=== PATIENT | female | born 1985 | race Caucasian/White ===

== ENCOUNTER 2016-10-01 16:13 | Inpatient (IN) | payer MEDICAID ==
--- NOTE | 2016-10-01 16:43 | EDPHY ---
H & P Smoking Status: Former smoker Time Seen by Provider: 10/01/16 16:39 HPI/ROS: Chief complaint. Agitated, schizoaffective disorder HPI. 31-year-old female with history of bipolar and schizoaffective disorder with previous mental health hospitalizations is brought to the emergency department by a co-worker. The co-worker says the patient has been acting quite erratically at work the last 2-3 days. She has walked away from work today. 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 She tried to quit work when she came in this morning. The patient tells me I like to smoke marijuana. She says she has not been taking her regular medications. Denies illness or injury. Denies suicide ideation or illness. ROS Constitutional. Erratic behavior Eyes. no problems with vision ENT. no sore throat, no nasal drainage Cardiovascular. no chest pain Respiratory. no shortness of breath, no cough Abdominal. no abdominal pain, no nausea/vomiting, no diarrhea . no problems urinating MS. no calf pain/swelling, no neck/back pain, no joint pain Skin. no rash Lymph. no swollen glands Neuro. no headache, no dizziness, no difficulty walking or with speech (Chirag Willard) Past Medical/Surgical History: Bipolar, schizoaffective (Chirag Willard) Social History: Single, nonsmoker, no alcohol (Chirag Willard) Physical Exam: General Appearance: Alert well-developed female moderate distress. Answers questions vaguely can after quite long a hesitation is Eyes: Pupils equal and round no pallor or injection. ENT, Mouth: Mucous membranes are moist. Respiratory: There are no retractions, lungs are clear to auscultation. Cardiovascular: Regular rate and rhythm. Gastrointestinal: Abdomen is soft and nontender, no masses, bowel sounds normal. Neurological: Awake and alert, sensory and motor exams grossly normal. Skin: Warm and dry, no rashes. Musculoskeletal: Neck is supple nontender. Extremities symmetrical, full range of motion. Psychiatric: Patient is oriented X 3, there is no agitation. (Chirag Willard) Constitutional: Initial Vital Signs Temperature (C) 37 C 10/01/16 16:31 Heart Rate 104 H 10/01/16 16:31 Respiratory Rate 18 10/01/16 16:31 Blood Pressure 114/81 H 10/01/16 16:31 O2 Sat (%) 97 10/01/16 16:31 O2 Delivery Mode Room Air Allergies/Adverse Reactions: allergy med Allergy (Uncoded 10/01/16 16:30) Home Medications: Medication Instructions Recorded [place] Carbonate [[place] 300 mg PO BID 09/07/15 Carbonate Tab 300 mg (*)] risperiDONE [Risperdal 1mg (*)] 2 mg PO BID #0 tab 09/12/15 Medical Decision Making Procedures: Patient is placed on a detainer (Chirag Willard) ED Course/Re-evaluation: Further history is obtained from her co-worker who brought the patient here 11:00 p.m. patient has been evaluated by mental health. She is placed on an M1 hold. They will look for a bed for the patient (Chirag Willard) 0618AM 10/02/16: No acute events overnight. Patient signed over to Dr. Delgadillo at 7:00 a.m. shift change. 0651: Patient has been accepted at [address] [place] [address] Marquez. Appropriate transfer be set up. Emtala will be filled out. (Fidel Aleman) Differential Diagnosis: Substance abuse including ingestion as well as withdrawal. Schizoaffective and bipolar illness and not taking medication. I also considered psychotic behavior and suicide ideation (Chirag Willard) Care Turn Over: Dr. Prater at 2300. (Chirag Willard) - Data Points Laboratory Results: Laboratory Results 10/01/16 17:20 10/01/16 17:20 Medications Given: Discontinued Medications Lorazepam (Ativan) 1 mg PO ONCE ONE Stop: 10/02/16 02:13 Last Admin: 10/02/16 02:17 Dose: 1 mg Olanzapine (Zyprexa) 10 mg PO ONCE ONE Stop: 10/02/16 02:56 Last Admin: 10/02/16 02:56 Dose: 10 mg Departure - Departure Disposition: [facility] IP Clinical Impression: Acute psychosis Condition: Fair Referrals: NONE *PRIMARY CARE P,. [Primary Care Provider] - As per Instructions
[2016-10-01 17:34] LABS: % IMMATURE GRANULYOCYTES 0.3 % (0.0-1.1); ABSOLUTE IMMATURE GRANULOCYTES 0.03 10^3/uL (0.00-0.10); ADD DIFF? NO; ADD MORPH? NO; ADD SCAN? NO; ATYPICAL LYMPHOCYTE FLAG 10 (0-99); FRAGMENT RBC FLAG 0 (0-99); HEMOGLOBIN 14.3 g/dL (12.6-16.3); LEFT SHIFT FLG 0 (0-99); LIPEMIA HEMOLYSIS FLAG 90 (0-99); MEAN CELL HEMOGLOBIN 29.4 pg (27.9-34.1); MEAN CELL HEMOGLOBIN CONCENTR. 34.9 g/dL (32.4-36.7); MEAN CELL VOLUME 84.2 fL (81.5-99.8); MEAN PLATELET VOLUME 9.8 fL (8.7-11.7); PLATELET CLUMPS FLAG 0 (0-99); PLATELET COUNT 331 10^3/uL (150-400); RED BLOOD CELL COUNT 4.87 10^6/uL (4.18-5.33)
[2016-10-01 17:56] LABS: ANION GAP 14 mEq/L (8-16); CALCIUM 10.2 mg/dL (8.5-10.4); CARBON DIOXIDE 26 mEq/l (22-31); CHLORIDE 102 mEq/L (97-110); CREATININE 0.7 mg/dL (0.6-1.0); ETHANOL SERUM < 10 mg/dL (0-10); GLOMERULAR FILTRATION RATE > 60; GLUCOSE 103 mg/dL (70-100); POTASSIUM 4.2 mEq/L (3.5-5.2); SODIUM 142 mEq/L (134-144)
[2016-10-01 18:11] LABS: LITHIUM < 0.2 mEq/L (0.6-1.2)
[2016-10-02] MEDS ORDERED: LORazepam 1 MG TAB PO ONE ×2 (02:12→02:13)
[2016-10-02] MEDS ORDERED: OLANZapine DISINTEGR 10 MG TAB ONE (02:54)
[2016-10-02] MEDS ORDERED: OLANZapine 2.5 MG TAB PO ONE (02:55)
[2016-10-02] MEDS ORDERED: OLANZapine DISINTEGR 10 MG TAB PO PRN (11:20)
[2016-10-02] MEDS ORDERED: ACETAMINOPHEN 325 MG TAB PO PRN (11:20)
[2016-10-02] MEDS ORDERED: MAG HYDROX/AL HYDROX/SIMETH 30 ML UDCUP PO PRN (11:20)
[2016-10-02] MEDS ORDERED: LORazepam 0.5 MG TAB PO PRN (11:20)
[2016-10-02] MEDS ORDERED: NICOTINE POLACRILEX 2 MG GUM B PRN (11:20)
[2016-10-02] MEDS ORDERED: MAGNESIUM HYDROXIDE 30 ML UDCUP PO PRN (11:20)
[2016-10-02] MEDS: LITHIUM CARBONATE 300 MG TAB PO SCH ×2 (13:17→21:13)
[2016-10-02] MEDS: risperiDONE 1 MG TAB PO SCH ×2 (13:17→21:13)
--- NOTE | 2016-10-02 15:20 | BCON ---
[f rep st] BEHAVIORAL HEALTH CONSULTATION INTERNAL MEDICINE CONSULTATION. REFERRING PHYSICIAN: Kim Marquez MD REASON FOR REFERRAL: Medical clearance for inpatient behavioral health stay. HISTORY OF PRESENT ILLNESS: Daisy Cabrera was brought to the emergency department by a co-worker. The co-worker reported that she had been acting erratically at work for 2-3 days. She had not been taking her regular medications. She was evaluated by the mental health team and admitted for further psychiatric care. She is currently without any acute medical complaints. PAST MEDICAL HISTORY: Bipolar disorder. She has no other medical or surgical history. MEDICATIONS: She was prescribed risperidone 2 mg p.o. b.i.d. and lithium 300 mg p.o. b.i.d., but she had been noncompliant with her medications. ALLERGIES: There are no known drug allergies. SOCIAL HISTORY: She lives alone in an apartment in [place]. 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 She is an occasional tobacco smoker. She is a marijuana smoker. She denies alcohol use. 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 FAMILY HISTORY: Noncontributory. REVIEW OF SYSTEMS: A 10-point review of systems was conducted and was negative other than her feeling sleepy. PHYSICAL EXAM: VITAL SIGNS: Blood pressure is 103/61, heart rate is 89, respiratory rate 14, oxygen saturation is 99% on room air. Temperature is 36.6 degrees centigrade. Her weight is 63.5 kg for a body mass index of 22.6. GENERAL: Is a well-nourished, well-developed woman, appears her chronologic age , cooperative and in no acute distress. HEENT: Extraocular movements are intact. Pupils are equal, round, and reactive to light. Mucous membranes are moist. Dentition is in good condition. NECK: Supple. HEART: Regular rate and rhythm with no murmurs, rubs, or gallops. LUNGS: Clear to auscultation bilaterally. ABDOMEN: Soft, nontender, nondistended with normoactive bowel sounds. EXTREMITIES: There is no cyanosis, clubbing, or edema. NEUROLOGIC: She is alert and oriented x3. Cranial nerves 2-12 are grossly intact. There is no focal weakness, and sensation is intact to light touch. LABORATORY STUDIES: In the emergency room, CBC showed an elevated white blood cell count at 10.49. There was no left shift. There was an increase in absolute neutrophils at 7.12 and absolute monocytes at 1.08, and decrement of eosinophils at 0.02. Serum chemistry revealed an elevated glucose at 103, this was likely not fasting. Otherwise, renal function and electrolytes were within normal limits. Beta HCG was negative for . Toxicology in the serum was negative for acetaminophen, lithium, or ethyl alcohol. Toxicology in the urine was non-negative for marijuana, and was otherwise negative for substances of abuse. ASSESSMENT/RECOMMENDATIONS: 1. Mental health issues, pending further evaluation and management per Psychiatry and the mental health team. 2. Leukocytosis, likely due to emotional stress. There is no sign or symptom of any infections and further evaluation is not indicated. 3. Marijuana use disorder. She might benefit from specific substance abuse counseling. I see no medical contraindications to the patient's continued stay on the inpatient behavioral health unit or to any psychiatric medications or procedures. Thank you very much for including me in the care of this patient and please do not hesitate to contact me or the hospitalist service should there be need for further medical evaluation. /[id number]/MODL MTDD
[2016-10-03] MEDS: LITHIUM CARBONATE 300 MG TAB PO SCH ×2 (08:28→21:41)
[2016-10-03] MEDS: risperiDONE 1 MG TAB PO SCH ×2 (08:28→21:43)
[2016-10-03] MEDS ORDERED: risperiDONE MICROSPHERES 37.5 MG/2 ML SYR IM ONE (11:19)
--- NOTE | 2016-10-03 11:23 | SOAPPROG ---
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 Plan:Con't Risperdal and S[place]oy Give Risperdal consta 37.5 mg IM today 10/03/16 11:19 Subjective: "I'm a little tired." Objective: Vital Signs Temp Pulse Resp BP Pulse Ox 36.4 C 117 H 14 117/58 L 98 10/03/16 06:00 10/03/16 06:00 10/03/16 06:00 10/03/16 06:00 10/03/16 06:00 Pt is A+O x4 mood-euthymic affect-appr denies S/H I no A/V H speech-wnl slept 12 hours conc-improving memory-intact recent sx psychosis/luke no ZENIA I/B-zded-oqlfrtwaf THC use - Time Spent With Patient Time Spent With Patient: 25' - Pending Discharge Pending Discharge Within 24 Hours: No Pending Discharge Within 48 Hours: No ICD10 Worksheet Patient Problems: Problems Problem Status Diagnosed Acute psychosis Acute Bipolar 1 disorder Acute Severe major depression Acute Urinary tract infection Acute
--- NOTE | 2016-10-03 12:05 | BAPA ---
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 She is currently on probation for a DUI. The patient is known to this MD from her 2 previous hospitalizations at [address] [place] [address]. She has history of going off her psych medications and using marijuana and getting manic. She usually clears pretty quickly. She was brought into the ED on 10/01/2016, agitated. She was brought to the ER by a co-worker. 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 The coworker stated the patient has been acting erratically for the past 2-3 days at work and then walked away from work that day. The pt also lost her purse and her coat. She tried to quit work when she came in that morning. The patient told the ER doctor, "I like to smoke marijuana." She states she has not been on her psychiatric medications. She answered questions vaguely with quite a long hesitation. She was seen by [facility]. Her coworker stated she had been acting very erratically , bizarre, forgetful and disorganized. The patient said she had quit her job and then regretted that she quit. She was placed on an M1 hold by ED physician , Dr. Willard, which noted, "Client has established diagnosis of bipolar 1 disorder with psychotic features. Client has illogical, nonlinear thought process, reports hearing voices. Reports not taking her medications for months and client's coworkers reported that client has been acting erratically and bizarre. The patient presents as gravely disabled." Patient reported not sleeping for at least 2 days. Had decreased appetite, poor concentration, energy and felt confused. The patient reported auditory hallucinations of hearing faint music all the time and voices telling her she should make her relationships with some people better. The patient reported that she had not been taking her medication, lithium, for 6-8 months although the patient reported she receives monitored medications monthly. She was a member of [facility] in the past through [facility]. The patient denies suicidal or homicidal ideation. No previous suicide history. PSYCH HISTORY: Patient has had 10 previous inpatient hospitalizations since age 27 with the most recent in August [address] [place] [address]. She has been dx with Bipolar Disorder with psychotic features, Schizoaffective D/O and R/O Schizophrenia. The pt has been a client at [facility] in the past. The patient is supposed to be in by monthly therapy and monitored medications through [facility]. She was supposed to be seeing Chacha Lo and therapist, Natalya Lau. However, she is no longer seeing them. She has not been sleeping and her appetite is decreased. The patient is supposed to be taking lithium carbonate 300 mg twice daily, Risperdal and Risperdal Consta. She has not gotten her shot in months. In the past she was on Kyle and Haldol. She was hospitalized from 08/23/2015 to 08/28/2015 for a similar presentation and at that time she stated she did not want to take her Kyle because she wanted to "fall in love and have children. " She was again hosp on 3 from 09/08/2015 to 09/12/2015. She was discharged on 09/12/15 on Risperdal 2 mg twice daily, lithium 300 mg twice daily and Risperdal Consta 25-50 mg IM q.2 to 3 weeks, given 09/11/2015. Her discharge diagnosis at that time was schizoaffective disorder, chronic. The patient went to [facility] during that admission. The patient was given Zyprexa 10 mg on 10/02/2016 and also Ativan 1 mg. MEDICAL PROBLEMS: Patient denies. SUBSTANCE ABUSE: The patient admitted to this MD that she "occasionally" smokes marijuana but her use appears to be more often. Per EPS report, she stated she used drugs in the past but does not anymore; however, her U tox is positive for marijuana. She gave mixed reports of how much marijuana and how often she uses and appeared confused about this. Never had treatment for alcohol or drug use but is currently on probation for DUI. FAMILY HISTORY: The patient does not know of any family history of mental illness or addiction. LEGAL PROBLEMS: The patient has a deferred sentence of a vehicular assault on a police detention attendant from October of 2014 and is on probation. SOCIAL HISTORY: Patient's family lives in [place] and [place]. The patient was born in [place], [place] and currently lives alone in [place]. She was raised by her parents and has two sisters and is in touch with her family. She has a BS in environmental science. 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 She has a history of being arrested and jailed on account of criminal impersonation and also has deferred sentence for vehicular assault on a police detention attendant with a DUI back in October of 2014. She enjoys art and hiking. She is not sure of the status of her current employment. MENTAL STATUS: Patient is sedated from receiving the Zyprexa and Ativan so it is difficult to get a mental status. Mood has recently been agitated with broad affect. She recently has had auditory hallucinations. She denied any suicidal or homicidal ideation. Thoughts were illogical. Speech was rambling. Concentration and memory poor. Recent symptoms of psychosis and recent poor impulse control-- quitting her job and abusing cannabis. Insight and judgment are limited. IMPRESSION: 1. Schizoaffective disorder, bipolar type R/O Schizophrenia 2. Cannabis use disorder, severe. 3. No medical problems. 4. Gap on admission is 20. PLAN: Will restart patient's medications. She currently is on 0.5 mg of Risperdal twice daily p.r.n., and this will be discontinued and Risperdal 2 mg twice daily will be started as well as lithium 300 mg twice daily. We order a Risperdal Consta injection of 37.5 and when patient is more awake ask her if she will be willing to take it. She will be seen by the home care consultant and the hospitalist. Patient is appropriate for inpatient psychiatric hospitalization at this time. /[id number]/MODL MTDD
[2016-10-04] MEDS: risperiDONE 1 MG TAB PO SCH ×3 (08:27→21:15)
[2016-10-04] MEDS: LITHIUM CARBONATE 300 MG TAB PO SCH ×2 (08:27→21:15)
--- NOTE | 2016-10-04 10:36 | SOAPPROG ---
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 Plan; Pt refused her Risperdal po yesterday-she is stating it is too sedating- will decrease dose to 1mg BID Give Risperdal consta 37.5 mg IM 09/03/16 Pt will be placed on a STC 10/04/16 10:33 Subjective: "I'm feeling better today. Yesterday I was out of it." Objective: Vital Signs Temp Pulse Resp BP Pulse Ox 36.4 C 79 14 105/57 L 98 10/04/16 06:38 10/04/16 06:38 10/04/16 06:38 10/04/16 06:38 10/04/16 06:38 Pt is A+O x4 mood-"better" affect-constricted denies S/H I no A/V H no delusions pt lacks insight into compliance with her meds and her cannabis use contributing to her decompensation thoughts-focuses on why she does not need Risperdal speech-wnl slept 9 hours is eating well no ZENIA memory-intact but reports [facility] took her off Risperdal which is not accurate I/J-poor - Time Spent With Patient Time Spent With Patient: 25' - Pending Discharge Pending Discharge Within 24 Hours: No Pending Discharge Within 48 Hours: No ICD10 Worksheet Patient Problems: Problems Problem Status Diagnosed Acute psychosis Acute Bipolar 1 disorder Acute Severe major depression Acute Urinary tract infection Acute
[2016-10-04] MEDS ORDERED: risperiDONE MICROSPHERES 37.5 MG/2 ML SYR IM ONE (12:00)
[2016-10-05] MEDS: risperiDONE 1 MG TAB PO SCH ×2 (08:53→21:16)
[2016-10-05] MEDS: LITHIUM CARBONATE 300 MG TAB PO SCH ×2 (08:53→21:16)
--- NOTE | 2016-10-05 19:37 | SOAPPROG ---
SOAP Progress Note Assessment/Plan: Assessment: Pt is a 31 y/o SC female w hx BMD, psych med n/c and THC use on probation, admitted for acute decompensation, now on STC and restarted on meds. Plan: cont Risp 1mg bid. and Li 300mg bid received Risperdal consta 37.5 mg IM on 09/03/16 on STC 10/05/16 18:08 per staff, slept 6hr. "doing fine". not using prn ativan or zyprexa. does not want any changes in currently prescribed meds hoping to leave Friday. feels "calm, controlled" on current meds. States she feels "clear, settled...functional now" b/c "living on a rhythm" including regular bedtime. calm, coop, casually dressed, good eye contact, nml speech rate/vol, mood "calm ", affect euthymic, no delusions, denied si/hi or any ah/vh. Objective: Vital Signs Temp Pulse Resp BP Pulse Ox 36.4 C 108 H 20 113/57 L 94 10/05/16 06:00 10/05/16 06:00 10/05/16 06:00 10/05/16 06:00 10/05/16 06:00 - Time Spent With Patient Time Spent With Patient: 25 min - Pending Discharge Pending Discharge Within 24 Hours: No Pending Discharge Within 48 Hours: No ICD10 Worksheet Patient Problems: Problems Problem Status Diagnosed Acute psychosis Acute Bipolar 1 disorder Acute Severe major depression Acute Urinary tract infection Acute
[2016-10-06 06:34] VITALS: RESP 16; O2SAT 97
[2016-10-06] MEDS: LITHIUM CARBONATE 300 MG TAB PO SCH ×2 (08:13→20:49)
[2016-10-06] MEDS: risperiDONE 1 MG TAB PO SCH ×2 (08:13→20:50)
--- NOTE | 2016-10-06 11:05 | SOAPPROG ---
SOAP Progress Note Assessment/Plan: Assessment: Pt is a 31 y/o SC female w hx BMD, psych med n/c and THC use on probation, admitted for acute decompensation, now on STC and restarted on meds, improving. Plan: cont Risp 1mg bid. and Li 300mg bid received Risperdal consta 37.5 mg IM on 09/03/16 on STC. has PO. plan f/u w/[facility] p d/c 10/05/16 18:08 per staff, slept 6hr. "doing fine". not using prn ativan or zyprexa. does not want any changes in currently prescribed meds hoping to leave Friday. feels "calm, controlled" on current meds. States she feels "clear, settled...functional now" b/c "living on a rhythm" including regular bedtime. calm, coop, casually dressed, good eye contact, nml speech rate/vol, mood "calm ", affect euthymic, no delusions, denied si/hi or any ah/vh. 10/06/16 15:20 slept 8.5hrs. med compliant, per staff. no acute issues.denied med s/e. feels mood stable. thoughts organized. no evid of and pt denied med s/e per cc, pt signed KELI for po calm, coop, casually dressed, good eye contact, nml speech rate/vol, euthymic, full range affect, nml speech rate/vol, no delusions/si/hi/ah/vh. Objective: Vital Signs Temp Pulse Resp BP Pulse Ox 36.6 C 64 16 92/51 L 97 10/06/16 06:00 10/06/16 06:00 10/06/16 06:00 10/06/16 06:00 10/06/16 06:00 - Time Spent With Patient Time Spent With Patient: 20min - Pending Discharge Pending Discharge Within 24 Hours: No Pending Discharge Within 48 Hours: Yes Pending Discharge Date: 10/08/16 Pending Discharge Time: 11:00 ICD10 Worksheet Patient Problems: Problems Problem Status Diagnosed Acute psychosis Acute Bipolar 1 disorder Acute Severe major depression Acute Urinary tract infection Acute
[2016-10-07 06:29] VITALS: BP 101/51; PULSE 62; TEMP 98.1
[2016-10-07] MEDS: risperiDONE 1 MG TAB PO SCH (09:16)
[2016-10-07] MEDS: LITHIUM CARBONATE 300 MG TAB PO SCH (09:16)
== END 2016-10-07 12:11 | disposition home or self-care (01) | DRG 885 ==
LOC: BBEH 10-02 09:47
PROVIDERS: ADMIT Psychiatry & Neurology Behavioral Neurology & Neuropsychiatry; ATTEND Psychiatry & Neurology Psychiatry
DX: F25.0 Schizoaffective disorder, bipolar type (principal); T43.506A Underdosing of unspecified antipsychotics and neuroleptics, initial encounter; F12.10 Cannabis abuse, uncomplicated
CPT/HCPCS: 80305; G0480; J2794

== ENCOUNTER 2016-10-21 16:57 | Emergency (ER) | payer MEDICAID ==
--- NOTE | 2016-10-21 17:06 | EDPHY ---
H & P Time Seen by Provider: 10/21/16 17:05 HPI/ROS: CHIEF COMPLAINT: Confusion. HISTORY OF PRESENT ILLNESS: This is a 31-year-old female with a history of bipolar disorder and schizoaffective disorder presenting via private vehicle with a coworker. This patient was seen in the ED a few weeks and prescribed Risperidol. She has felt better since then but has been confused for the last 2 weeks. Her coworker reports that on Friday she was confused but still able to work. At some point last week she wandered off from work for 7 hours and returned dirty with no belongings. Friday and Friday she was not scheduled but came in because she felt she "needed to work." Today at work she was confused again. He also describes her intermittently having a flat affect and becoming mostly unresponsive. She denies SI or HI. She believes she feels fine. She has been compliant with her medications. REVIEW OF SYSTEMS: A complete 10-point review of systems was performed and is negative except for those items mentioned in the HPI. Past Medical/Surgical History: Bipolar disorder, schizoaffective disorder. Social History: Works at [employer] Smoking Status: Former smoker Physical Exam: General Appearance: Alert, no distress. Flat affect. Eyes: Pupils equal and round, no conjunctival pallor or injection ENT, Mouth: Mucous membranes moist Neck: Normal inspection Respiratory: Lungs are clear to auscultation Cardiovascular: Regular rate and rhythm Gastrointestinal: Abdomen is soft and non-tender Neurological: A&O, nonfocal, normal gait Skin: Warm and dry, no rash Extremities: Nontender, no pedal edema Psychiatric: Mood and affect normal Constitutional: Initial Vital Signs Temperature (C) 36.7 C 10/21/16 17:05 Heart Rate 104 H 10/21/16 17:05 Respiratory Rate 20 10/21/16 17:05 Blood Pressure 135/81 H 10/21/16 17:05 O2 Sat (%) 98 10/21/16 17:05 O2 Delivery Mode Room Air Allergies/Adverse Reactions: allergy med Allergy (Uncoded 10/21/16 17:05) Home Medications: Medication Instructions Recorded [place] Carbonate [[place] 300 mg PO BID #60 tab 10/07/16 Carbonate Tab 300 mg (*)] risperiDONE MICROSPHERES 37.5 mg IM ONCE #1 syr 10/07/16 [Risperdal Consta 37.5 mg (*)] risperiDONE [Risperdal 1mg (*)] 1 mg PO BID #60 tab 10/07/16 Medical Decision Making ED Course/Re-evaluation: An IV was established and labs ordered. She does not meet criteria to be placed on a mental health hold. The plan was for psych to evaluate her, and to arrange f/u care, but she left the emergency dept prior to the evaluation. - Data Points Laboratory Results: Laboratory Results 10/21/16 17:23 10/21/16 17:23 Departure - Departure Disposition: Home, Routine, Self-Care Clinical Impression: Schizoaffective disorder Qualifiers: Schizoaffective disorder type: bipolar Qualified Code(s): F25.0 - Schizoaffective disorder, bipolar type Condition: Good Instructions: Schizoaffective Disorder (ED) Additional Instructions: Call your psychiatrist tomorrow to set up an appointment. Please call [facility] ([facility]) at [phone] and make an appointment to get established with their services. Their main location address is listed above. [facility] also has a Walk-In Crisis Center ([phone]) that is open 17/03 and is located at [address] [place] [address]. You can go there any time to talk to someone and receive help. There is also a [facility] Crisis Line: [phone] Return to the emergency department if you experience any serious worsening of condition. Referrals: [facility] [Outside] - As per Instructions Report Scribed for: Amariyls Long Report Scribed by: Vinay Rodriguez Date of Report: 10/21/16 Time of Report: 17:06 Physician Review and Approval Statement: 10/21/16 17:06 Portions of this note were transcribed by a medical engineer. I personally performed a history, physical exam, medical decision making, and confirmed accuracy of information the transcribed note.
[2016-10-21 17:08] VITALS: BP 135/81; PULSE 104; RESP 20; TEMP 98.1; O2SAT 98
[2016-10-21 17:43] LABS: % IMMATURE GRANULYOCYTES 0.1 % (0.0-1.1); ABSOLUTE IMMATURE GRANULOCYTES 0.01 10^3/uL (0.00-0.10); ADD DIFF? NO; ADD MORPH? NO; ADD SCAN? NO; ATYPICAL LYMPHOCYTE FLAG 0 (0-99); FRAGMENT RBC FLAG 0 (0-99); HEMATOCRIT 38.6 % (38.0-47.0); HEMOGLOBIN 13.3 g/dL (12.6-16.3); LEFT SHIFT FLG 0 (0-99); LIPEMIA HEMOLYSIS FLAG 90 (0-99); MEAN CELL HEMOGLOBIN 29.6 pg (27.9-34.1); MEAN CELL HEMOGLOBIN CONCENTR. 34.5 g/dL (32.4-36.7); MEAN PLATELET VOLUME 9.6 fL (8.7-11.7); PLATELET CLUMPS FLAG 0 (0-99); PLATELET COUNT 312 10^3/uL (150-400); RED BLOOD CELL COUNT 4.49 10^6/uL (4.18-5.33); RED CELL DISTRIBUTION WIDTH 12.1 % (11.5-15.2)
[2016-10-21 17:51] LABS: ANION GAP 13 mEq/L (8-16); CALCIUM 10.4 mg/dL (8.5-10.4); CARBON DIOXIDE 26 mEq/l (22-31); CHLORIDE 101 mEq/L (97-110); CREATININE 0.7 mg/dL (0.6-1.0); ETHANOL SERUM < 10 mg/dL (0-10); GLOMERULAR FILTRATION RATE > 60; GLUCOSE 104 mg/dL (70-100); POTASSIUM 4.3 mEq/L (3.5-5.2); SODIUM 140 mEq/L (134-144)
== END 2016-10-21 18:38 | disposition home or self-care (01) ==
DX: F25.0 Schizoaffective disorder, bipolar type (principal); Z87.891 Personal history of nicotine dependence
CPT/HCPCS: 80305; G0480

== ENCOUNTER 2016-11-07 21:59 | Emergency (ER) | payer MEDICAID ==
[2016-11-07 22:11] VITALS: BP 109/76; PULSE 104; RESP 16; TEMP 98.4; O2SAT 97
[2016-11-07] MEDS ORDERED: LORazepam 1 MG TAB PO ONE (22:46)
--- NOTE | 2016-11-07 23:28 | EDPHY ---
H & P Stated Complaint: Anxiety Time Seen by Provider: 11/07/16 22:55 HPI/ROS: Chief complaint: Anxiety, can' t sleep HPI: 31-year-old female with a past medical history of bipolar disorder. Patient states that she took herself off of her lithium and Risperdal several days ago because she felt she did not need them. She is states she did started them again yesterday. She is feeling confusion anxious for the last 24 hours. Was not able to sleep last night. Today's had some fleeting thoughts of self- harm because she is tired and wants to get some sleep. Does not have any plan. Currently is not suicidal or homicidal. He denies hearing voices or seeing things. She is currently jose david for safety. She gets her care at [facility]. States that her biggest concern now that she will not be able to sleep tonight. ROS: 10 point Review of Systems is negative except as noted in the HPI. Social history: Bipolar disorder Medications: [place] Risperdal Physical exam: Gen: Awake, Alert, No Distress HEENT: Nose: no rhinorrhea Eyes: PERRLA, EOMI Mouth: Moist mucosa Neck: Supple, no JVD Chest: nontender, lungs clear to auscultation Heart: S1, S2 normal, no murmur Abd: Soft, non-tender, no guarding Back: no CVA tenderness, no midline tenderness Ext: no edema, non-tender Skin: no rash Neuro: CN II-XII intact, Sensation grossly intact, Strength 5/5 in bilateral upper and lower extremities - Personal History Current Tetanus/Diphtheria Vaccine: Yes Current Tetanus Diphtheria and Acellular Pertussis (TDAP): Yes - Medical/Surgical History Hx Asthma: No Hx Chronic Respiratory Disease: No Hx Diabetes: No Hx Cardiac Disease: No Hx Renal Disease: No Hx Cirrhosis: No Hx Alcoholism: No Hx HIV/AIDS: No Hx Splenectomy or Spleen Trauma: No Other PMH: Bipolar - Social History Smoking Status: Former smoker Constitutional: Initial Vital Signs Temperature (C) 36.9 C 11/07/16 22:08 Heart Rate 104 H 11/07/16 22:08 Respiratory Rate 16 11/07/16 22:08 Blood Pressure 109/76 11/07/16 22:08 O2 Sat (%) 97 11/07/16 22:08 O2 Delivery Mode Room Air Allergies/Adverse Reactions: allergy med Allergy (Uncoded 10/21/16 17:05) Home Medications: Medication Instructions Recorded [place] Carbonate [[place] 300 mg PO BID #60 tab 10/07/16 Carbonate Tab 300 mg (*)] risperiDONE MICROSPHERES 37.5 mg IM ONCE #1 syr 10/07/16 [Risperdal Consta 37.5 mg (*)] risperiDONE [Risperdal 1mg (*)] 1 mg PO BID #60 tab 10/07/16 Medical Decision Making ED Course/Re-evaluation: 31-year-old with a history of bipolar who is presenting with anxiety and difficulty sleeping. Patient did have some fleeting thoughts of self-harm but no plan at all. She is currently jose david for safety. She usually only wanting to get some sleep. She is not meeting criteria for mental health hold at this time. I will send her home with some Ativan and some Benadryl as a sleep aid. I have told her that she is welcome to return at any time if she feels that she is a danger to herself. Otherwise she should follow up with [facility] tomorrow. He is in agreement with this plan. Will discharge with follow-up as stated. - Data Points Medications Given: Discontinued Medications Lorazepam (Ativan) 1 mg PO EDNOW ONE Stop: 11/07/16 22:47 Last Admin: 11/07/16 22:49 Dose: 1 mg Departure - Departure Disposition: Home, Routine, Self-Care Clinical Impression: Anxiety, Insomnia Condition: Good Instructions: Insomnia (ED), Anxiety (ED) Additional Instructions: Follow up with [facility] tomorrow. Return to the emergency department for increasing anxiety, thoughts of suicide, or any other concerns. Referrals: NONE *PRIMARY CARE P,. [Primary Care Provider] - As per Instructions [facility],. [Clinic] - As per Instructions
[2016-11-07] MEDS ORDERED: diphenhydrAMINE 25 MG CAP PO ONE (23:29)
[2016-11-07] MEDS ORDERED: LORAZEPAM 1 MG PREPACK#4 BTL TAKEHOME ONE (23:29)
== END 2016-11-07 23:50 | disposition home or self-care (01) ==
DX: F41.9 Anxiety disorder, unspecified (principal); G47.00 Insomnia, unspecified; Z87.891 Personal history of nicotine dependence

== ENCOUNTER 2017-04-07 10:49 | Inpatient (IN) | payer MEDICAID ==
[2017-04-07 11:19] LABS: % IMMATURE GRANULYOCYTES 0.4 % (0.0-1.1); ABSOLUTE IMMATURE GRANULOCYTES 0.04 10^3/uL (0.00-0.10); ADD DIFF? NO; ADD MORPH? NO; ADD SCAN? NO; ATYPICAL LYMPHOCYTE FLAG 0 (0-99); FRAGMENT RBC FLAG 0 (0-99); HEMATOCRIT 40.1 % (38.0-47.0); HEMOGLOBIN 13.8 g/dL (12.6-16.3); LEFT SHIFT FLG 0 (0-99); LIPEMIA HEMOLYSIS FLAG 90 (0-99); MEAN CELL HEMOGLOBIN 29.8 pg (27.9-34.1); MEAN CELL HEMOGLOBIN CONCENTR. 34.4 g/dL (32.4-36.7); MEAN CELL VOLUME 86.6 fL (81.5-99.8); MEAN PLATELET VOLUME 9.7 fL (8.7-11.7); PLATELET CLUMPS FLAG 10 (0-99); PLATELET COUNT 359 10^3/uL (150-400); RED BLOOD CELL COUNT 4.63 10^6/uL (4.18-5.33); RED CELL DISTRIBUTION WIDTH 12.4 % (11.5-15.2)
[2017-04-07 11:39] LABS: ANION GAP 14 mEq/L (8-16); CALCIUM 10.2 mg/dL (8.5-10.4); CARBON DIOXIDE 23 mEq/l (22-31); CHLORIDE 102 mEq/L (97-110); CREATININE 0.8 mg/dL (0.6-1.0); ETHANOL SERUM < 10 mg/dL (0-10); GLOMERULAR FILTRATION RATE > 60; GLUCOSE 110 mg/dL (70-100); POTASSIUM 4.4 mEq/L (3.5-5.2); SALICYLATE < 1.0 mg/dL (2.0-20.0); SODIUM 139 mEq/L (134-144)
[2017-04-07 11:56] LABS: LITHIUM < 0.2 mEq/L (0.6-1.2)
--- NOTE | 2017-04-07 15:42 | EDPHY ---
H & P Time Seen by Provider: 04/07/17 13:05 HPI/ROS: CHIEF COMPLAINT: Bipolar disorder, psychotic, disorganized, on mental health hold HISTORY OF PRESENT ILLNESS: This is a 31-year-old female with a history of bipolar disorder who states that she takes lithium as well as Abilify. She evidently presented to [facility] yesterday. At that time she was quite disorganized, and psychotic. 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 Patient herself states she does not recall this event. Patient was placed on a mental health hold at [facility] and referred here to be medically cleared. She denies any recent illness or change in her medications. No fever, chills, chest pain, shortness of breath, palpitations, vomiting, diarrhea, urinary complaints, headache, lightheadedness. REVIEW OF SYSTEMS: Aside from elements discussed in the HPI, a comprehensive 10-point review of systems was reviewed and is negative. PAST MEDICAL HISTORY: Bipolar disorder. SOCIAL HISTORY: Denies alcohol or smoking. VITAL SIGNS: see nurse's notes. GENERAL: Well-developed, well-nourished, in no acute distress. Speech is slow but largely coherent. HEENT: Normal, no discharge or icterus, moist mucous membranes. PERRL, EOMI. Dry mucous membranes. Neck: supple, FROM. LUNGS: Clear to auscultation bilaterally, no wheezes, rhonchi or rales. CARDIAC: Regular rate and rhythm, no rubs, murmurs or gallops. ABDOMEN: Soft, nontender, nondistended, bowel sounds normal. BACK: No CVA tenderness. No vertebral tenderness. EXTREMITIES: No edema, FROM. NEURO: Alert and oriented x3, grossly nonfocal. SKIN: Warm and dry, no rash. PSYCHIATRIC: No agitation. Smoking Status: Former smoker Constitutional: Initial Vital Signs Temperature (C) 37.1 C 04/07/17 10:56 Heart Rate 67 04/07/17 10:56 Respiratory Rate 16 04/07/17 10:56 Blood Pressure 106/71 04/07/17 10:56 O2 Sat (%) 96 04/07/17 10:56 O2 Delivery Mode Room Air Allergies/Adverse Reactions: allergy med Allergy (Uncoded 10/21/16 17:05) Home Medications: Medication Instructions Recorded ARIPiprazole [Abilify 5 mg (*)] 5 mg PO HS #30 tab 04/10/17 [place] [facility] [Lithobid 300 300 mg PO BID #60 tab 04/10/17 mg (*)] Medical Decision Making ED Course/Re-evaluation: Labs were obtained. Patient's lithium is noted to be less than 0.2. Urine tox is positive only for marijuana. Patient was medically cleared by myself. Her care was assumed by Dr. Eliazar Clement at 4:00 p.m.. We are awaiting placement from [facility]. Patient accepted at [facility] and transfered at 19:40 Differential Diagnosis: Psychosis including but not limited to chronic psychosis, medication noncompliance, medication side effect, depression and illicit drug use. - Data Points Laboratory Results: Laboratory Results 04/07/17 11:06 04/07/17 11:06 Medications Given: Discontinued Medications Aripiprazole (Abilify) 10 mg PO DAILY [facility] Stop: 10/06/17 08:59 Last Admin: 04/09/17 08:52 Dose: 10 mg Aripiprazole (Abilify) 5 mg PO DAILY [facility] Stop: 10/06/17 08:59 Last Admin: 04/10/17 08:36 Dose: 5 mg [place] Carbonate ([place] Carbonate) 300 mg PO BID [facility] Stop: 10/04/17 22:14 Last Admin: 04/10/17 08:36 Dose: 300 mg Departure - Departure Disposition: [facility] IP Clinical Impression: Bipolar 1 disorder, Acute psychosis Altered mental status Qualifiers: Altered mental status type: unspecified Qualified Code(s): R41.82 - Altered mental status, unspecified Condition: Good
[2017-04-07] MEDS ORDERED: MAG HYDROX/AL HYDROX/SIMETH 30 ML UDCUP PO PRN (22:01)
[2017-04-07] MEDS ORDERED: ACETAMINOPHEN 325 MG TAB PO PRN (22:01)
[2017-04-07] MEDS ORDERED: LORazepam 0.5 MG TAB PO PRN (22:01)
[2017-04-07] MEDS ORDERED: MAGNESIUM HYDROXIDE 30 ML UDCUP PO PRN (22:01)
[2017-04-07] MEDS ORDERED: OLANZapine DISINTEGR 10 MG TAB PO PRN (22:01)
[2017-04-07] MEDS ORDERED: NICOTINE POLACRILEX 2 MG GUM B PRN (22:01)
[2017-04-07] MEDS: LITHIUM CARBONATE 300 MG CAP PO SCH (22:25)
[2017-04-08] MEDS: LITHIUM CARBONATE 300 MG CAP PO SCH ×2 (08:44→19:56)
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
[2017-04-08] MEDS ORDERED: ARIPiprazole 5 MG TAB PO SCH (21:00)
--- NOTE | 2017-04-09 02:55 | BCON ---
[f rep st] BEHAVIORAL HEALTH CONSULTATION INTERNAL MEDICINE CONSULTATION DATE OF CONSULTATION: 04/08/2017 REFERRING PHYSICIAN: Selwyn Dick MD REASON FOR REFERRAL: Medical clearance for inpatient behavioral health stay. HISTORY OF PRESENT ILLNESS: This patient was brought to the emergency department on an M1 hold afte r seeing a therapist at the [facility]. She was disorganized and psychoti c. She was evaluated by the mental health team and admitted for further psychiatric care. She currently is without any acute complaints. PAST MEDICAL HISTORY: 1. Mental illness with diagnoses in the chart of severe major depression, bipolar I disorder, acute psychosis and schizoaffective disorder. 2. Mononucleosis. 3. Urinary tract infection. PAST SURGICAL HISTORY: She denies any history of surgeries. MEDICATIONS: She was prescribed aripiprazole and lithium but apparently was noncompliant. SOCIAL HISTORY: She lives by herself in an apartment. 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 She smokes oc casional cigarettes. FAMILY HISTORY: Noncontributory. REVIEW OF SYSTEMS: A 10-point review of systems was conducted and was negative. PHYSICAL EXAM: VITAL SIGNS: Blood pressure is 109/52, heart rate is 69, respiratory rate is 18, ox ygen saturation is 98% on room air. Temperature is 36.5 degrees centigrade. Her weight is 63.5 kg. GENERAL: This is a well-nourished, well-developed woman in the dining room eating dinner, coopera tive, and in no acute distress. HEENT: Extraocular movements are intact. Pupils are equal, round, reactive to light. Mucous membranes are moist. Dentition is in good condition. Airway is uncrowd ed, Mallampati class 1. NECK: Supple. HEART: There is a regular rate and rhythm with no murmurs, rubs, or gallops. LUNGS: Clear to auscultation bilaterally. ABDOMEN: Soft, nontender, nondisten ded with normoactive bowel sounds. EXTREMITIES: There is no cyanosis, clubbing, or edema. NEUROLOG IC: She is alert and oriented x3. Cranial nerves 2-12 are grossly intact. She has a guarded affec t. There is no focal weakness. Sensation is intact to light touch and gait is within normal limits . LABORATORY STUDIES: From the emergency department, CBC revealed a slightly elevated white blood atul l count at 9.9. Otherwise was within normal limits. Serum chemistry revealed normal renal function and electrolytes. Glucose was mildly elevated at 110 but was likely not fasting. Beta hCG was neg ative for . Toxicology screen in the serum was negative for salicylates, acetaminophen, et hyl alcohol, and a lithium level was undetectable. Toxicology screen in the urine was non-negative for marijuana but otherwise negative for substances of abuse. ASSESSMENT/RECOMMENDATIONS: 1. Mental health issues pending further evaluation and management per Psychiatry and the mental a lt team. 2. Marijuana use disorder may complicate her mental health status. She might benefit from specific substance abuse counseling. I see no medical contraindications to this patient's continued stay on the inpatient behavioral [facility] unit or to any psychiatric medications or procedures. Thank you very much for including me in the care of this patient and please do not hesitate to conta ct me or the hospitalist service should there be a need for further medical evaluation. /[id number]/MODL
[2017-04-09] MEDS: LITHIUM CARBONATE 300 MG CAP PO SCH ×2 (08:52→19:59)
[2017-04-09] MEDS ORDERED: ARIPiprazole 5 MG TAB PO SCH ×2 (09:00→15:56)
--- NOTE | 2017-04-09 15:54 | SOAPPROG ---
SOAP Progress Note Assessment/Plan: Assessment: 04/09/17 15:49 Plan: 1. Patient wants to take only 5mg of Abilify, even though psych MD explained that 10mg-15mg is the effective dose. 2. Patient has f/u appts with [facility] providers already scheduled. 3. M1 hold expires tomorrow. Will be voluntary until discharge. Subjective: Met with patient and discussed with staff. Patient presents well-groomed, better eye contact, not twirling her hair or looking at floor. She is more engaged and coherent. There is some response delay and occassionally patient is distracted and needs question repeated, but there is no evidence of external stimuli and patient denies any AH/VH. She says the meds are making her feel "tired" and she reports GARCIA and upset stomach. She says her mood is "stable" and she feels "fine." She says she feels like she is back to her "normal" self. She doesn't know where she parked her car prior to admission, and needs to call her landlord to find out where it is. She also lost her purse and keys. She does not show any sxs of luke and there is no evidence of psychosis. She denies any SI/HI. Objective: Vital Signs Temp Pulse Resp BP Pulse Ox 36.6 C 75 14 94/53 L 95 04/09/17 06:00 04/09/17 06:00 04/09/17 06:00 04/09/17 06:00 04/09/17 06:00 MSE: Well-groomed, appropriately dressed, calm, cooperative. Affect: Constricted , euthymic Mood: "Fine" TP: Coherent, logical TC: Denies any AH/VH, no paranoia, no delusions, denies any SI//HI Insight/Judgment: Poor - Time Spent With Patient Time Spent With Patient: 20" - Pending Discharge Pending Discharge Within 24 Hours: Yes Pending Discharge Date: 04/10/17 Pending Discharge Time: 12:00 ICD10 Worksheet Patient Problems: Problems Problem Status Onset Acute psychosis Acute Bipolar 1 disorder Acute Schizoaffective disorder Acute Severe major depression Acute Urinary tract infection Acute
[2017-04-10 06:28] VITALS: BP 108/58; PULSE 87; RESP 16; TEMP 97.6; O2SAT 96
[2017-04-10] MEDS: LITHIUM CARBONATE 300 MG CAP PO SCH (08:36)
--- NOTE | 2017-04-10 14:53 | BDS ---
[f rep st] BEHAVIORAL HEALTH DISCHARGE SUMMARY REASON FOR ADMISSION: This is a 31-year-old, female, who was placed on a mental health ho ld by SECURITY SOLUTIONS ENGINEER who saw her at the [facility] walk-in clinic on the morning of 04/07/2017. The patient was brou ght in by her landlady because of events that happened the previous day on 04/06/2017. According to [place] booking police officer Bennie and client's landlady, Jason, the patient was out hiking near [address]. She stopped at a home in the area to ask for water. The homeowner subsequently contacted ab marie and reported that the client was "not making any sense" and said she was "looking for the [place]. Police contacted the client's landlady who had filed a missing person's report because e patient had not come home. Early on the morning of 04/07/2017, one of the patient's friends, Geri neto, brought the patient back to the house where she rents a room and spoke to the client's landlady, Jason. According to Jason, Kamaljit said that the patient came to his house in the middle of the night comp letely naked and talking incoherently. Jason said she does not know where the patient left her car and the patient has lost her purse, her phone and her car keys. Jason attempted to convince the client t o go to the hospital but client refused but then agreed to go to the [facility] Walk-In Clinic. She was evaluated by SECURITY SOLUTIONS ENGINEERAlf Sandoval who placed the patient on a mental healt h hold because, according to motor coach chauffeur, the client was reported to the police as "not making any sen se." The client had shown impaired memory, judgment and insight, although none of the symptoms were in evidence at the time that the patient was evaluated in the walk-in clinic or subsequently in the [facility] ED. ADMITTING DIAGNOSES: 1. Substance-induced psychosis. 2. Bipolar disorder, type 1, manic with psychotic features, not in evidence during his hospitalizat ion. 3. Cannabis use disorder, severe. 4. Alcohol use disorder, severe. 5. Psychosocial stressors include noncompliance with treatment limited social support. Not engage with her outpatient providers. Financial problems, has changed jobs a lot over the last couple of y ears. 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 ADMISSION PHYSICAL EXAMINATION: Performed by Dr. Clovis Flanagan. Please see his H and P for jesenia cancino. ADMISSION LABORATORY DATA: Were done in the [facility] ED. Her white cell count was 9.9, hemoglobin was 13.8, hematocrit was 40.0, platelet count was 359. Sodium was 139, potassium was 4.4, chloride was 102, BUN was 19, creatinine was 0.8, glucose was 110, calcium was 10.2. Salicyla rosalee and acetaminophen levels were both undetectable. [place] level was undetected. Blood alcohol le sam was less than 10. Her urine drug screen was positive for marijuana, negative for all other drug s of abuse. HOSPITAL COURSE: When MD saw the patient on the morning of 04/08/2015, she was calm, cooperative, p leasant. She was somewhat guarded and slightly suspicious, particularly when answering questions ab out her drug history, but she was otherwise coherent, logical, linear, forthcoming. She admitted th at she has "not taken my medications for a while" because she says that she "did not think they were very helpful." The patient says that it is probably a good idea for her to get back on her medicati ons and she says maybe this time "I should try little harder" to stay on my medications. The chuy landin has been admitted to the hospital 4 times in the last 2 years, usually during a time when she has gone off her medications and returned to using marijuana and alcohol. When MD interviewed the noemy banegas on the morning after her admission, patient says "I do not know what happened." She remembers wa lking around the streets in her neighborhood because "it was a beautiful azeem day." She remembers s topping at a neighbor's house and asking for water and says that the neighbor asked whom she was and she was a little bit hesitant to give her name but she does not remember making any statements abou t the [place]. She said she does not remember going over to the friend's house, Kamaljit, the nig ht before. However, in the emergency department, the patient was asked by the nursing staff her keya son for being in the ED. When asked why she was there, the patient states "I just did some stupid st uff when I was drunk last night." Based on the MD's review of prior records from [facility], from Nayeli Gama M.D., who saw the patient on all 3 of her previous hospitalizations in July of 2015, August 2015 and most recently in September of 2016. There is no clear indicat ion the patient has ever exhibited or shown signs of luke, even though it is frequently documented the patient presents as "manic." The only report that this MD can find of symptoms that would be co nsistent with that diagnosis are decreased need for sleep and, at the time, the patient only reporte d not being able to sleep for "at least 2 days" which is insufficient to merit a diagnosis of bipola r. She does report hearing "faint music all the time and voices telling her she should make relatio nships with people better," which is a symptom of psychosis and not necessarily of luke. She does not present as depressed and has no prior history it sounds like since adolescence, of depression. There is maybe 1 remote reported suicide attempt but the patient has declined to give details of savi t in the past. Some of those episodes are from the patient's adolescence and all the reports of her being admitted to the hospital since she moved to [place] in 2012 revolve around episodes when she had altered mental status, was confused, was not making sense, was forgetful, had lost personal ite ms and showed impaired judgment and insight. Each of those times, the patient's urine tox screen sh owed that she was positive for marijuana and at least on 1 of those occasions the patient herself ad mitted that she had been "drunk." She does have a history of DUI in 2014 and actually vehicular ass elizabeth of a booking police officer due to driving while intoxicated also in 2014. The times that the patient presents with altered mental status, confusion, disorganization, forgetfulness, impaired judgment an d insight, it is likely that those symptoms are the result of alcohol and marijuana intoxication and are not the signs or symptoms of bipolar disorder. Without having first-hand knowledge and trackin g the patient when she is not taking psychotropic medications and not using mood altering substances , it would be difficult to make an accurate diagnosis or establish the necessity of having her on mo od stabilizers. Prior to her admission to [address] [place] [address] in September of 2016, she had been off medications for 6-8 months, according to her. At the time of this admission, she had not been taking medicatio ns for several months. In this MD's opinion, if going off the medications alone was sufficient to c ause the kinds of decompensation that had got her admitted to the psych glass, you would expect to se e those symptoms and decompensation develop before 6-8 months have elapsed. The more likely trigger or cause of her confusion, altered mental status, disorganization and erratic behavior is not nonco mpliance with medication but intoxication from alcohol and cannabis. Therefore, this MD feels that a more accurate diagnosis for this patient would be a substance-induced psychosis, cannabis use diso rder, and alcohol use disorder rather than a chronic long-term mental illness like bipolar disorder or schizoaffective disorder. While she was in the hospital during this admission, the patient did a gree to go back on her outpatient medication regimen which was lithium 300 mg p.o. twice daily and A bilify 5 mg daily. MD explained to the patient that 5 mg of Abilify is usually not consider therape utic, that the starting effective dose is 10 mg for patients with mood disorder or thought disorder. The patient said she was only willing to take 5 mg despite MD's explanation that this is unlikely to be effective for her. When MD asked the patient if she has these medications at home, she said y es because she has not been taking them, but it turns out that actually the patient only has prescri ptions that she has never actually even gotten the prescriptions filled from the last time she saw h er outpatient provider, Chacha Estrada, who is a nurse practitioner at [facility], so there is obviously s ome strong ambivalence and resistance on the part of the patient to actually taking these medication s. None the less, the MD thought it was most prudent to restart the medications since other provide rs have documented that medications have been effective for her in the past and relay the MD's lea rns that the patient may have been inappropriately diagnosed and that the underlying cause of the sy mptoms that lead to her hospitalizations are more likely due to the intoxication affects of cannabis and alcohol and have the patient discuss that with her outpatient provider. So that was explained t o the patient and will be passed along to her [facility] providers upon discharge The patient's condition at discharge was stable. Her affect was euthymic. She was appropriate, line ar, logical, coherent and goal directed. There was no evidence of psychosis. No signs or symptoms of luke. She denied thoughts, plans or intent to hurt herself or anyone else. DISCHARGE MEDICATIONS: Include lithium 300 mg p.o. twice daily, 60 tablets, and Abilify 5 mg p.o. d aily, 30 tablets. DISCHARGE DIAGNOSES: 1. Substance-induced psychosis. 2. Cannabis use disorder, severe. 3. Alcohol use disorder, severe. 4. Bipolar disorder, type 1, manic with psychotic features, not in evidence during this hospitaliza tion. Question this diagnosis. For further details,please see hospital course. 5. Psychosocial stressors include limited social support, not engaged with outpatient providers, no ncompliance with treatment, financial problems, changed jobs frequently and dropped out of [employer] recently. DISPOSITION: Patient was discharged from the hospital with followup appointments with her regular o utpatient providers through [facility]. FOLLOWUP: Patient has appointment with Chacha Estrada, her nurse practitioner, on 04/18/2017 at 10 :15 a.m. and she has an appointment with Beatriz Bhatia, her immigration case manager/therapist on 04/16/2017 at 140 0. LEGAL COURSE: The patient was converted to voluntary status upon expiration of her M1 hold. /[id number]/MODL
== END 2017-04-10 12:05 | disposition home or self-care (01) | DRG 897 ==
LOC: EDUNIT# → BBEH 20:00
PROVIDERS: ADMIT Psychiatry & Neurology Psychiatry; ATTEND Specialist
DX: F12.250 Cannabis dependence with psychotic disorder with delusions (principal); F10.259 Alcohol dependence with alcohol-induced psychotic disorder, unspecified; F31.10 Bipolar disorder, current episode manic without psychotic features, unspecified; Z63.8 Other specified problems related to primary support group
CPT/HCPCS: 80305; G0480

== ENCOUNTER 2018-01-12 15:09 | Inpatient (IN) | payer MEDICAID ==
--- NOTE | 2018-01-12 15:16 | EDPHY ---
H & P Source: Patient Exam Limitations: No limitations - Medical/Surgical History Hx Asthma: No Hx Chronic Respiratory Disease: No Hx Diabetes: No Hx Cardiac Disease: No Hx Renal Disease: No Hx Cirrhosis: No Hx Alcoholism: No Hx HIV/AIDS: No Hx Splenectomy or Spleen Trauma: No Other PMH: Bipolar, substance abuse - Family History Significant Family History: No pertinent family hx - Social History Smoking Status: Former smoker Alcohol Use: None Time Seen by Provider: 01/12/18 15:15 HPI/ROS: CHIEF COMPLAINT: Bipolar HISTORY OF PRESENT ILLNESS: The patient is a 32-year-old female with a history of bipolar who typically takes lithium and Abilify. She showed up at her former job today and was acting "weird". She has difficulty answering open- ended questions. She will shake her head yes or no to simple questions. She denies drug or alcohol use recently. She has been [facility] in the setting of substance abuse and psychosis. She denies any recent trauma or illness. 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 When the police arrived she also was staring and the female officer's gun and asked if the officer had ever been in a girl fight. REVIEW OF SYSTEMS: Unable to assess EXAM: GENERAL: Well-appearing, will not answer most questions. HEAD: Atraumatic, normocephalic. EYES: Pupils equal round and reactive to light, extraocular movements intact, sclera anicteric, conjunctiva are normal. ENT: TMs normal, nares patent, oropharynx clear without exudates. Moist mucous membranes. NECK: Normal range of motion, supple without lymphadenopathy or JVD. LUNGS: Breath sounds clear to auscultation bilaterally and equal. No wheezes rales or rhonchi. HEART: Regular rate and rhythm without murmurs, rubs or gallops. ABDOMEN: Soft, nontender, normoactive bowel sounds. No guarding, no rebound. No masses appreciated. BACK: No CVA tenderness, no spinal tenderness, step-offs or deformities EXTREMITIES: Normal range of motion, no pitting or edema. No clubbing or cyanosis. NEUROLOGICAL: Cranial nerves II through XII grossly intact. Normal speech, normal gait. 5/5 strength, normal movement in all extremities, normal sensation PSYCH: Decreased affect, significant hesitation with answering questions. SKIN: Warm, dry, normal turgor, no visible rashes or lesions. (Gary Delgadillo) Constitutional: Initial Vital Signs Temperature (C) 36.6 C 01/12/18 15:09 Heart Rate 80 01/12/18 15:09 Respiratory Rate 16 01/12/18 15:09 Blood Pressure 140/59 H 01/12/18 15:09 O2 Sat (%) 98 01/12/18 15:09 O2 Delivery Mode Room Air Allergies/Adverse Reactions: allergy med Allergy (Uncoded 10/21/16 17:05) Home Medications: Medication Instructions Recorded ARIPiprazole [Abilify 5 mg (*)] 5 mg PO HS #30 tab 04/10/17 [facility] [Lithobid 300 300 mg PO BID #60 tab 04/10/17 mg (*)] Medical Decision Making ED Course/Re-evaluation: This patient was turned over to me at change of shift. this patient has been fully evaluated. They been accepted by Dr. Yareli galdamez at [address] [place] [address]. (Eliazar Clement) 4:30 p.m. The patient is medically cleared for psychiatric evaluation. 6:30 p.m. the patient has been evaluated by [facility]. They plan to admit. (Gary Delgadillo) Differential Diagnosis: Partial list of the Differential diagnosis considered include but were not limited to; bipolar, manic, suicidality and although unlikely based on the history and physical exam, I also considered infection, head injury. (Gary Delgadillo) Other Provider: 2300 care assumed by me from Dr. Delgadillo pending placement. [address] patient signed out to Dr. Clement pending placement. No issues during my care of this patient overnight. (Ruben Ugalde) - Data Points Laboratory Results: Laboratory Results 01/12/18 15:50 01/12/18 15:50 Departure - Departure Disposition: [facility] IP Clinical Impression: Bipolar 1 disorder Condition: Fair
[2018-01-12 16:10] LABS: PLATELET COUNT 290 10^3/uL (150-400)
--- NOTE | 2018-01-13 13:39 | BCON ---
[f rep st] BEHAVIORAL HEALTH CONSULTATION INTERNAL MEDICINE CONSULTATION DATE OF CONSULTATION: 01/13/2018 REFERRING PHYSICIAN: Selwyn Dick MD REASON FOR REFERRAL: Medical clearance for inpatient behavioral health stay. HISTORY OF PRESENT ILLNESS: This patient came to the emergency department brought by police on an M1 hold. 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 Police were called, and they brought her to the emergency depar tment. She was evaluated by the mental health team and admitted for further psychiatric care. She currently is without any acute complaints. PAST MEDICAL HISTORY: 1. Mental health issues with diagnoses of depression, bipolar and schizoaffective disorder. 2. Mononucleosis. PAST SURGICAL HISTORY: She has not had any surgeries. SOCIAL HISTORY: She lives in [place] with a boyfriend. She is an occasional smoker. She lost her joselo b last week at the [employer]. FAMILY HISTORY: There is a grandmother with schizophrenia. MEDICATIONS: She was prescribed lithium 300 mg p.o. b.i.d. and aripiprazole 5 mg p.o. q.h.s. REVIEW OF SYSTEMS: Limited as she has a limited response. She denies pain, cough, or dyspnea. She has a good appetite. Beyond that, she was not forthcoming. PHYSICAL EXAM: VITAL SIGNS: Blood pressure is 115/89. Heart rate is 78. Respiratory rate is 16. O xygen saturation is 97% on room air. Temperature is 37 degrees centigrade. Her weight is 63.5 kg for a body mass index of 22.6. GENERAL: This is a well-nourished, well-developed woman, wearing a [facility] sm[facility], sitting up in a chair in the dining room, eating lunch, moderately cooperative and in no acute distress. HEENT: Extraocular movements are intact. Pupils are equal, round, and reacti ve to light. Mucous membranes are moist. Dentition is in good condition. NECK: Supple. HEART: T here is a regular rate and rhythm, with no murmurs, rubs, or gallops. LUNGS: Clear to auscultation bilaterally. ABDOMEN: Benign. NEUROLOGIC: She is alert. Orientation was not checked. Cranial ne rves 2-12 are grossly intact. There is no focal weakness. LABORATORY STUDIES: CBC was entirely within normal limits. Serum chemistry revealed a slightly low carbon dioxide at 19 and a corresponding elevated anion gap at 17. Otherwise, renal function and kayleen ctrolytes were normal. Beta hCG was negative for . Toxicology screen in the serum was nega tive for ethyl alcohol, and lithium level was undetectable. Toxicology in the urine was negative for any substances of abuse. ASSESSMENT/RECOMMENDATIONS: 1. Mental health issues pending further assessment and management per Psychiatry and the mental [facility] team. 2. [place]. This is not severe. There is no blistering. She does not appear to be in any pain, an d it was not tender when her lungs were auscultated. Advised p.r.n. ibuprofen and might consider a s kin emollient. I see no medical contraindications to this patient's continued stay in the inpatient [facility] unit or to any psychiatric medications or procedures. Thank you very much for including me in the care of this patient, and please do not hesitate to conta ct me or the hospitalist service should there be need for further medical evaluation. /[id number]/MODL
--- NOTE | 2018-01-13 14:18 | SOAPPROG ---
SOAP Progress Note Assessment/Plan: Assessment: Plan: 01/13/18 14:17 Subjective: WRONG PATIENT. PLEASE DISREGARD. Objective: Vital Signs Temp Pulse Resp BP Pulse Ox 36.6 C 80 14 100/62 97 01/13/18 13:06 01/13/18 13:06 01/13/18 13:06 01/13/18 13:06 01/13/18 13:06 - Time Spent With Patient Time Spent With Patient: 15" ICD10 Worksheet Patient Problems: Problems Problem Status Onset Bipolar 1 disorder Acute Acute psychosis Acute Alcohol use disorder, severe, dependence Acute Altered mental status Acute Cannabis dependence Acute Schizoaffective disorder Acute Severe major depression Acute Urinary tract infection Acute
[2018-01-13] MEDS ORDERED: MAGNESIUM HYDROXIDE 30 ML UDCUP PO PRN (14:38)
[2018-01-13] MEDS ORDERED: ACETAMINOPHEN 325 MG TAB PO PRN (14:38)
[2018-01-13] MEDS ORDERED: MAG HYDROX/AL HYDROX/SIMETH 30 ML UDCUP PO PRN (14:38)
[2018-01-13] MEDS ORDERED: OLANZapine DISINTEGR 10 MG TAB PO PRN (14:38)
--- NOTE | 2018-01-13 17:10 | BAPA ---
[f rep st] ADMISSION PSYCHIATRIC ASSESSMENT DATE OF SERVICE: 01/13/2018 CHIEF COMPLAINT: "I'm not really sure why I'm here." HISTORY OF PRESENT ILLNESS: The patient is a 32-year-old female brought to [facility] ER by [place] police due to disorganized behavior, illogical aggressive thoughts , and making suicidal statements. She was referred by [facility] ER for inpatient psychiatric hospitalization. She was admitted involuntarily and on an M1 Hold due to being gravely disabled and danger to self and others. Her M1 Hold was placed on 01/12/2018 at 1322. She is currently hospitalized for safety, crisis stabilization, and medication evaluation. The patient presents disorganized, distracted with thought blocking. She has difficulty sustaining attention during the interview, often looking at interviewer with blank stare, and leaves interview several times. At several points throughout the interview, she asked to leave, either go to her room, or to use the phone. At one point, the patient asked this interviewer if he would drive her back to her home in [place]. The patient reports the circumstances that contributed to her crisis that led to current hospitalization was due to not taking her prescribed lithium , and states she does not remember the last time she took this medication. The patient refused to answer any additional questions at this point in the interview, stating she wanted to go to her room, and then stated she wanted to see if she could use the phone really quick. After a few minutes, the patient agreed to continue evaluation. She reports taking lithium 300 mg p.o., b.i.d. on and off for a long time. She states she is unsure the last time she took this medication. She reports taking Zyprexa in the past, and this has been beneficial for improving her mood. She describes recently leaving her boyfriend 's home and decided to drive to [place] from [place]. She reports a decrease need for sleep over the last 3-4 days prior to her admission here. She does not provide any additional details that led to her hospitalization. She reports current mental health illness that contributed to crisis that led to her current hospitalization, as bipolar disorder; reports she was first diagnosed with bipolar disorder in 2012. She states current alcohol and/or substance abuse that contributed to crisis that led to current hospitalization as none. She describes current psychiatric symptoms as feeling a little sad. She reports a history of luke symptoms, including a distinct period of elevated , expansive and irritable mood, increased goal-directed activity present most of the day, generally everyday, and describes the following symptoms during this period of time: inflated self-esteem, decreased need for sleep, pressure to keep talking, flight of ideas, racing thoughts, distractibility, increase in goal-directed activity, and excessive involvement in activities with painful consequences. She states she cannot remember any specific details regarding these symptoms at this time. She reports these periods of time will last about 4 days, and states she is unsure how often these episodes occur per year. She states she recently had one of these episodes with decreased need for sleep. She reports no abuse or trauma injury. She denies other psychiatric symptoms including symptoms of anxiety, ADHD, OCD, and PTSD. The patient describes currently psychiatric symptoms are impacting being able to manage her day-to- day life described as: Household responsibilities without difficulty; work functioning, reports has not been working for about a week; reports she is isolating, no social functioning; reports she does get along with her family; reports she is currently not in school; reports she likes [employer] dancing as a hobby; and reports she is generally satisfied with her life. She denies current suicidal ideation. Reports protective factors or reasons to live as her family and friends. She reports future goals as not currently having any. She reports her support network as her family. She denies current homicidal ideation and denies current self-injurious ideation. She reports current outpatient treatment as medication management at [facility], and does not answer the question as to whether or not she currently has a therapist. PAST PSYCHIATRIC HISTORY: The patient describes the following: Outpatient medication management at [facility]. [facility] Was seen on 04/08/2017, 10/03/2016, 2015, and 08/23/2015. She reports past psychotropic medications as Zyprexa, Abilify, and lithium. Reports she does not remember the doses and reports these medications have been beneficial for her mood symptoms in the past when she takes them as prescribed. She reports no history of withdrawal from drugs or alcohol. She reports no history of suicide ideation or suicide attempts. She reports no history of self-injurious behavior. ALLERGIES: The patient describes no known drug allergies. CURRENT MEDICATIONS: The patient describes current psychotropic medications as lithium 300 mg p.o., b.i.d. and Abilify 5 mg p.o., daily. PAST MEDICAL HISTORY: The patient describes past medical history as neurological history (organic brain disease, traumatic brain injury, concussion ) as none. She has no reason to believe she could be . She is currently not on control. test upon admission was negative. She describes no history of major illnesses or major hospitalizations. SOCIAL HISTORY: The patient describes social history as place [place], [place]. Reports she was raised the majority of her life in [place] by both parents. Reports she is currently living in [place] with her boyfriend. She states she has no children. She reports she is currently unemployed. She describes her education as a Bachelor's in Science, and reports no history of duty. She describes denominational and spiritual practice as meditation yoga , and she states she currently has no pending legal charges. SUBSTANCE USE HISTORY: The patient describes history of occasional alcohol use , and does not provide any more details regarding that use. She reports no other substance use, including nicotine, marijuana, meth, cocaine, crack, heroin , prescription medication abuse, or any other substances. FAMILY PSYCHIATRIC HISTORY: The patient describes family psychiatric history as paternal grandfather with schizophrenia, no family history of suicide or suicide attempts, and no family history of substance use. ADMISSION LAB STUDIES: A1c, TSH, and fasting lipid panel was ordered by this interviewer to be completed with the ER blood work. MENTAL STATUS EXAM: The patient is an undernourished female looking stated chronological age. Attire is [facility] gar. Grooming status is inappropriate and disheveled. Ambulation is independent. Gait is normal and coordinated. Posture is normal and relaxed. Eye contact is appropriate. Motor activity is underactive, purposeful, and no involuntary movements. Attitude is uncooperative and guarded. Language production is not spontaneous, hesitant, with poverty of speech. She reports her mood as sad with congruent and blunted affect. Thought process is illogical, disorganized, and distracted. She does not report suicidal or homicidal thoughts, ideas, or plans. She denies auditory and visual hallucinations. She does not appear to be attending to internal stimuli. She is oriented to person, place, and time. Attention and concentration are poor. Insight and judgement are poor, and was unable to appropriately assess cognitive function at this time. DIAGNOSIS: Bipolar 1 disorder with psychotic features. FORMULATION: The patient is a 32-year-old female, single, unemployed, living in [place] with her boyfriend, who presents to hospital involuntarily due to being gravely disabled and a danger to herself and others. She is currently on an M1 Hold. She is a poor historian with poor judgment and poor insight and more time is needed for further monitoring, evaluation, and gathering of collateral. She requires continued inpatient care because of current psychosis and luke. She presents with problems of luke and psychosis that have been steadily increasing over the past several days. The onset of symptoms was preceded by her stopping lithium. She has a past psychiatric history of bipolar disorder since 2012, and was treated with lithium 300 mg p.o., b.i.d., and response to treatment has been fair. She has a history of nonadherence, and this has likely led to her recent manic episode with psychosis. Based on the patient's history and current presentation (see HPI) her diagnosis is bipolar I disorder with psychotic features. She is a moderate to high risk due to current psychosis. Protective factors while hospitalized include ongoing safety checks, active involvement in treatment, and support from treatment team. She could benefit from inpatient hospitalization for safety crisis stabilization and medication management. Further investigation including gathering information from the patient's relatives, review of her past case records, and continued evaluation will be ongoing during the course of her inpatient hospitalization to inform treatment and discharge planning. Immediate plans include continued inpatient hospitalization for safety crisis, stabilization, and medication evaluation. The patient will continue to be monitored and evaluated to determine if adjustments in medication regimen may benefit her symptoms. PLAN: 1. Psychotropic medications: [place] 300 mg b.i.d., and Zyprexa 5 mg p.o., q.h.s. 2. Therapy: milieu therapy, group therapy, individual therapy. 3. Immediate plans include continued inpatient hospitalization for safety, crisis stabilization, medication evaluation. 4. Further investigation including gathering information from a relative in review of her past case records. 5. Continued evaluation will be ongoing during the course of her inpatient hospitalization to inform treatment and discharge planning. 6. Safety plan and follow-up outpatient appointments to be established prior to discharge. 7. Review of informed consent and recommendations for psychotropic medication treatment below. 8. Confer with inpatient treatment team regarding initial treatment plan. ESTIMATED LENGTH OF STAY: 5 to 7 days. PSYCHOTROPIC MEDICATION TREATMENT INFORMED CONSENT and RECOMMENDATIONS: (1) Review nature of condition, diagnosis, and prognosis. (2) Review nature and purpose of psychotropic medication treatment. (3) Review type of psychotropic medications being ordered. (4) Review risk and benefits of psychotropic medication treatment. (5) Review probable length of time will need to take medications. (6) Review risk and benefits of not undergoing psychotropic medication treatment. (7) Review alternative treatments to psychotropic medications. (8) Review psychotropic medications contraindications, side effects, and importance of reporting any side effects to a psychiatric provider or nurse during inpatient hospitalization, and upon discharge to her psychiatric outpatient provider, her primary care provider, or other health hospice care transitions coordinator. (9) Review importance of her asking a nurse, psychiatric provider, or her primary care provider any questions or problems concerning the psychotropic medications. (10) Review importance of reporting to her psychiatric provider, her primary care provider, or other health hospice care transitions coordinator if she plans to or becomes . (11) Confirm she understands the information that has been provided, and she understands, accepts, and agrees to psychotropic medications. (12) Review safety plan and importance of her to communicate to staff while hospitalized if she is ever a danger to herself/others, or unable to care for herself, and upon discharge, the importance for her to contact [facility] or [facility], or go to the nearest emergency room, if she is ever a danger to herself/others, or unable to care for herself. (13) Recommend that upon discharge she establishes routine medication management treatment with a psychiatric provider and establishes routine therapy appointments. (14) Recommend that upon discharge she follows- up with her primary care provider. /[id number]/MODL MTDD
[2018-01-13] MEDS: OLANZapine 5 MG TAB PO SCH (21:20)
[2018-01-13] MEDS: LITHIUM CARBONATE ER 300 MG TAB PO SCH (21:20)
[2018-01-14] MEDS: LITHIUM CARBONATE ER 300 MG TAB PO SCH ×2 (09:03→20:44)
--- NOTE | 2018-01-14 16:46 | SOAPPROG ---
SOAP Progress Note Assessment/Plan: Assessment: Bipolar I disorder. Patient shows signs of improvement, and appears to be sleepy today likely due to being awake for several days prior to her admission. Recent manic episode likely due to patient not taking prescribed medications, and is now taking medications and showing improvement. No current signs of luke and patient denies depression symptoms. Plan: 01/14/18 16:42 Review psychotropic medication treatment informed consent and recommendations. No medication changes at this time as more time is needed to determine ongoing tolerability and efficacy. Plan is to continue to monitor her for response and side effects from medications, and ongoing monitoring and evaluation of luke, depression, and safety. She could benefit from continued inpatient hospitalization for crisis stabilization, safety, and medication evaluation. Next steps are for her to meet with her caretaker grounds to plan a safe discharge plan and establish outpatient services for ongoing treatment. Consider discharge next week if she is in stable condition, safe, and has a safe discharge plan. Subjective: Following up with patient for evaluation of psychosis, luke, depression, and safety. CC: Just getting back to normal. Patient reports she has been sleeping a lot today because she had been up for several days prior to her admission here. She describes sleeping well last night, and has been sleeping most the day today. She states she does not think she is sleeping too much due to the medications being sedating rather she is catching up on sleep she has not had for several days. She reports her mood as okay, states she is taking her medications as prescribed, and reports no side effects from the medications. She reports no suicidal ideation. She states she is not attending groups as she has been sleeping most of the day. Objective: Vital Signs Temp Pulse Resp BP Pulse Ox 36.6 C 76 17 99/64 L 99 01/14/18 06:00 01/14/18 06:00 01/14/18 06:00 01/14/18 06:00 01/14/18 06:00 Consulted with staff for update on patients progress. Nursing reports she slept 7 hours last night, is taking her medications as prescribed, and has reported no SEs or SI. Nursing staff reports she has been isolated to her room most of the day, did not eat breakfast, and ate 20% of her lunch. Nursing staff reports plan to continue to encourage food and fluid intake. Nursing reports she has not been engaged in her treatment since her admission. She is tolerating [place] [facility] 300 mg po BID for mood and Zyprexa 5 mg po QHS for mood and psychosis with no reports of side effects, and with fair response for symptoms. Zyprexa Zydis 5 mg po Q4HRS PRN was not given. Patient has been withdrawn to her room today, and has slept most of the day. Encourage patient to engage in groups, food and fluid intake, and be more involved in her treatment. MSE Attire is hospital garb and grooming status is disheveled. Ambulation is independent. Gait is normal and coordinated. Posture is normal and relaxed. Eye contact is little. Motor activity is underactive and slowed. Attitude is cooperative. Language production is scanty. Mood is okay with blunted affect. Thought process is linear and logical. Thought content is appropriate and associations are connected. Patient does not report suicidal/homicidal thoughts , ideas, or plans. Patient denies auditory, visual hallucinations. Patient denies delusions. Patient does not appear to be attending to internal stimuli. Patient is oriented to person, place, time, and situation. Attention and concentration are adequate, insight is adequate, judgement is fair, and no evidence of gross cognitive dysfunction at any point during the interview. - Time Spent With Patient Time Spent With Patient: 30 minutes Met with patient individually. - Pending Discharge Pending Discharge Within 24 Hours: No Pending Discharge Within 48 Hours: No ICD10 Worksheet Patient Problems: Problems Problem Status Onset Bipolar 1 disorder Acute Acute psychosis Acute Alcohol use disorder, severe, dependence Acute Altered mental status Acute Cannabis dependence Acute Schizoaffective disorder Acute Severe major depression Acute Urinary tract infection Acute
[2018-01-14] MEDS: OLANZapine 5 MG TAB PO SCH (20:44)
[2018-01-15] MEDS: LITHIUM CARBONATE ER 300 MG TAB PO SCH ×2 (09:23→21:06)
--- NOTE | 2018-01-15 13:59 | SOAPPROG ---
SOAP Progress Note Assessment/Plan: Assessment: Bipolar I disorder. Patient shows signs of improvement--patient likely reaching baseline and consider discharge tomorrow. No current signs of luke and patient denies depression, anxiety, and other psychiatric symptoms. Plan: Review psychotropic medication treatment informed consent and recommendations. No medication changes at this time as more time is needed to determine ongoing tolerability and efficacy. Plan is to continue to monitor her for response and side effects from medications, and ongoing monitoring and evaluation of luke, depression, and safety. She could benefit from continued inpatient hospitalization for crisis stabilization, safety, and medication evaluation. Next steps are for her to meet with her emergency care tech to plan a safe discharge plan and establish outpatient services for ongoing treatment. Consider discharge tomorrow if she is in stable condition, safe, and has a safe discharge plan. 01/15/18 14:11 Subjective: Following up with patient for evaluation of luke, depression, and safety. Patient reports, "I am feeling more like myself...feeling rested." Patient reports she has improved since her admission. She states she realizes the importance of taking her medications as prescribed and plans to continue medications after she discharges. Patient requests for this PLANT PATHOLOGY TEACHER to contact her boyfriend to get his impression on how she is progressing, and his thoughts on her safety to return home to their apartment in [place]. She agrees for this PLANT PATHOLOGY TEACHER to contact him after this interview. She describes the following: Sleep (quality and number of hours): 8-9 hours of sleep; feels rested today and states she slept throughout the night Appetite: ate breakfast; reports feels like her appetite is improving Mood: normal Meds adherence: reports she is taking her medications as prescribed Side effects: none EPS/Akathisia: none reported; none noted by this interviewer or nursing staff Active in therapy: reports she is engaging in groups Suicide ideation: reports none Objective: Vital Signs Temp Pulse Resp BP Pulse Ox 36.7 C 61 20 85/51 L 98 01/15/18 06:00 01/15/18 06:00 01/15/18 06:00 01/15/18 06:00 01/15/18 06:00 Consulted with nursing staff for update on patients progression in treatment. Nursing reports the following: Sleep: 8 hours Appetite: eating meals Med adherence: yes Activity in groups: attending and engaging in groups Side effects: none reported; none noted EPS/akathisia: none reported; none noted SI: none She is currently improving, tolerating [place] 300 mg po BID for mood and Zyprexa 5 mg po QHS for mood with no reports of side effects, and with good response for symptoms. Spoke to her boyfriend, Jazz by phone today: Jazz reports she is improving and is back to her normal self. He reports she is safe to discharge and return to their apartment in [place]. He states he can pick her up when she discharges. He agrees with plan for her to discharge tomorrow. MSE The patient presents casually dressed and with good hygiene, and looks stated age. She is sitting, posture is upright, and position is relaxed. She appears awake, alert, and responds appropriately and reasonably during interview. She is engaged, relates well to interviewer, and emotional facial expression is appropriate to situation and changes appropriately with topic. She is cooperative, makes comfortable eye contact, and movements are voluntary, deliberate, coordinated, and smooth and even with no inappropriate movements. She makes laryngeal sounds effortlessly and shares conversation appropriately; pace of conversation is appropriate, and stream of talking is fluent; articulation is clear and understandable; word choice is effortless and appropriate for education level; completes sentences, occasionally pausing to think; rate and volume are appropriate for interview and setting. She reports mood as euthymic. Her affect is irritable with full variable range, congruent with mood, and appropriate to speech and circumstances. She has illogical thinking, with no loose associations, no tangential thought, thought blocking, concrete thinking, or any other signs of formal thought disorder. She denies suicidal and homicidal ideation, and denies hallucinations and delusions. She appears to be good historian with good judgement and good insight into current condition. No apparent dysfunction in recent or remote memory noted, and no evidence of gross cognitive dysfunction noted at any point during the interview. - Time Spent With Patient Time Spent With Patient: 30 minutes Met with patient individually and spoke to patient's boyfriend, Jazz, by phone. - Pending Discharge Pending Discharge Within 24 Hours: Yes Pending Discharge Date: 01/16/18 Pending Discharge Time: 12:30 ICD10 Worksheet Patient Problems: Problems Problem Status Onset Bipolar 1 disorder Acute Acute psychosis Acute Alcohol use disorder, severe, dependence Acute Altered mental status Acute Cannabis dependence Acute Schizoaffective disorder Acute Severe major depression Acute Urinary tract infection Acute
[2018-01-15] MEDS: OLANZapine 5 MG TAB PO SCH (21:06)
[2018-01-16 07:06] VITALS: BP 87/52
[2018-01-16] MEDS: LITHIUM CARBONATE ER 300 MG TAB PO SCH (08:07)
--- NOTE | 2018-01-16 14:54 | BDS ---
[f rep st] BEHAVIORAL HEALTH DISCHARGE SUMMARY REASON FOR ADMISSION: 32-year-old female was brought to [facility] ER by [employer] police due to disorganized behavioral, illogical aggressive thoughts, and making suicidal statements. She was referred by [facility] ER for inpatient psychiatric hospitalization. She was admitted involuntarily and was on a M1 hold due to being gravely disabled, a danger to herself and to others. She was hospitalized for safety, crisis stabilization, and medication evaluation. The patient presented disorganized, distracted with thought blocking. She had difficulty sustaining attention during the interview, often looking at the interviewer with a blank stare. 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 The police were called, and they brought her to the emergency department. ADMISSION DIAGNOSIS: Bipolar I disorder. ADMISSION PHYSICAL EXAM/REVIEW OF SYSTEMS: Limited as she had limited response. She denied pain, cough, and shortness of breath. She had a good appetite. Beyond that, she was not forthcoming. Vital signs were normal. Further details for the physical exam can be found in the consultation note dated 01/13/18. ADMISSION LABS: CBC was entirely within normal limits. Serum chemistry revealed a slightly low carbon dioxide of 19 and a corresponding elevated anion gap at 17. Otherwise, renal function and electrolytes were normal. test was negative. Toxicology screen in the serum was negative for alcohol and lithium level was undetectable. Toxicology in the urine was negative for any substances of abuse. HOSPITAL COURSE: The patient was safe throughout her stay. She was withdrawn the first day to her room; however, she became active in her treatment. On the second day, she then engaged in therapy, she was appropriate with staff. Today , she reports she feels safe to discharge, and she contracts for safety. The patient had been prescribed lithium 300 mg p.o. b.i.d., and she reported she has been on this medication for quite some time. Upon admission, she stated she stopped taking the medication. This likely resulted in her hospitalization here. [place] 300 mg b.i.d. was continued during her hospital stay to target mood symptoms, was tolerated with no reported side effects, and with good response. Zyprexa 5 mg p.o. q.h.s. was started to target mood and psychosis symptoms. This medication was tolerated with good response. The patient's mood did improve, psychosis cleared, and the patient was able to test reality with improved insight after 2 days of hospitalization. Psychotropic medication treatment, informed consent, and recommendations were provided, and these can be found listed below this discharge summary. CONDITION ON DISCHARGE: The patient is in stable condition at time of discharge and level of risk is low. The patient presents casually dressed with good hygiene and looks stated age. She is sitting, posture is upright, and position is relaxed. She appears awake, alert, and responds appropriately and reasonably during interview. She is engaged, relates well to interviewer, and emotional facial expression is appropriate to situation and changes appropriately with topic. She is cooperative, makes comfortable eye contact, and movements are voluntary, deliberate, coordinated, and smooth and even with no inappropriate movements. She makes laryngeal sounds effortlessly and shares conversation appropriately. Pace of conversation is appropriate and stream of talking is fluent. Articulation is clear and understandable. Word choice is effortless and appropriately for education level. She completes sentences, occasionally pausing to think, and rate and volume of her speech is appropriate for interview and setting. She reports her mood as euthymic. Her affect is stable with full variable range congruent with her mood and appropriate to speech and circumstances. She has linear and logical thinking with no loose associations, tangential thought, thought walking, concrete thinking, or any other signs of formal thought disorder. She denies suicidal and homicidal ideation and denies hallucinations and delusions. She appears to be a reliable historian with sound judgement and good insight into her current condition. No apparent dysfunction in recent or remote memory noted and no evidence of gross cognitive dysfunction noted at any point during the interview. DISCHARGE DIAGNOSIS: Bipolar I disorder. DISCHARGE MEDICATIONS: Zyprexa 5 mg p.o. q.h.s. A prescription for #30 with no refills was written for this medication at time of discharge. Patient is to continue lithium 300 mg p.o. b.i.d. and patient reports she has a prescription for this medication at home. Therefore, a prescription for lithium was not requested at time of discharge. DISPOSITION: Patient will be going home with her boyfriend, Shan, back to their apartment in [place]. This interviewer did have time to meet with both the patient and Shan when he arrived today to pick her up at discharge, Sahn reports that she is safe to discharge and states that she is back to her normal self. Shan states he has no concerns regarding her discharging today. FOLLOWUP: The patient received written instruction with times and dates of her appointments. Patient does have an appointment scheduled January 26 with [facility] at 8:30 a.m. Patient reports she also has an outpatient provider with regularly scheduled appointments. The following recommendations were provided to the patient at discharge: Continue psychotropic medications as prescribed. Have lithium level drawn within the next week. Patient reports that she will have her lithium level drawn next week with her outpatient provider. Report any side effects to psychiatric outpatient provider, a primary care provider, or other healthcare professional. Address any questions or problems concerning the psychotropic medications with her psychiatric outpatient provider, primary care provider, or other healthcare professional. Contact [facility] or [facility] or go to your nearest emergency room if you are ever a danger to yourself, others, or unable to care for yourself. As soon as possible, establish routine medication management treatment with a psychiatric provider, establish routine therapy appointments, and followup with a primary care provider. LEGAL COURSE: Patient was admitted on a 72-hour hold. She then became voluntary and she was here voluntarily throughout the rest of her stay. She is discharging today independently on a voluntary basis. ATTITUDE AT TIME OF DISCHARGE: Patient's attitude was positive at time of discharge, and she reports she looks forward to discharging. The patient states she is no longer a danger to herself, she feels safe to discharge, and contract for safety. She states she plans to continue the current psychotropic medications and to establish medication management treatment with her outpatient provider as soon as she discharges. She reports she understands the information that has been provided to her and she understands, accepts, and agrees to psychotropic medications. She reports internal protective factors as the coping skills she has learned while hospitalized here, and she plans to continue to practice these coping skills after discharge. She reports external protective factors as her family and friends and her future goals and plans. She describes looking forward to going back to her home today, talking to one of her friends, states that she missed her friend's birthday while she was here , and so she wants to connect with her today. She reports she has plans to organize all of her outpatient appointments and start looking for another job after discharge. She also looks forward to going for a walk today or a bike ride and meeting with her operational intelligence officer as soon as possible. 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 Shan reports her family and friends look forward to her discharging today and he plans to support her by making sure she makes her outpatient appointments and she takes her medications as prescribed. The patient has no pending labs or studies at time of discharge, and has been informed to follow-up with her OP psychiatric provider or PCP to have lithium level drawn next week. PSYCHOTROPIC MEDICATION TREATMENT INFORMED CONSENT and RECOMMENDATIONS: (1) Review nature of condition, diagnosis, and prognosis. (2) Review nature and purpose of psychotropic medication treatment. (3) Review type of psychotropic medications being ordered. (4) Review risk and benefits of psychotropic medication treatment. (5) Review probable length of time will need to take medications. (6) Review risk and benefits of not undergoing psychotropic medication treatment. (7) Review alternative treatments to psychotropic medications. (8) Review psychotropic medications contraindications, side effects, and importance of reporting any side effects to a psychiatric provider or nurse during inpatient hospitalization, and upon discharge to her psychiatric outpatient provider, her primary care provider, or other health plant care worker. (9) Review importance of her asking a nurse, psychiatric provider, or her primary care provider any questions or problems concerning the psychotropic medications. (10) Review importance of reporting to her psychiatric provider, her primary care provider, or other health plant care worker if she plans to or becomes . (11) Confirm she understands the information that has been provided, and she understands, accepts, and agrees to psychotropic medications. (12) Review safety plan and importance of her to communicate to staff while hospitalized if she is ever a danger to herself/others, or unable to care for herself, and upon discharge, the importance for her to contact [facility] or [facility], or go to the nearest emergency room, if she is ever a danger to herself/others, or unable to care for herself. (13) Recommend that upon discharge she establishes routine medication management treatment with a psychiatric provider and establishes routine therapy appointments. (14) Recommend that upon discharge she follows- up with her primary care provider. /[id number]/MODL MTDD
== END 2018-01-16 12:55 | disposition home or self-care (01) | DRG 753 ==
LOC: EDUNIT# → BBEH 01-13 12:00
PROVIDERS: ADMIT Registered Nurse; ATTEND Registered Nurse
DX: F31.2 Bipolar disorder, current episode manic severe with psychotic features (principal); L55.0 Sunburn of first degree
CPT/HCPCS: 80305; G0480